=== PATIENT | female | born 1985 | race African-American/Black ===

== ENCOUNTER 2021-07-11 08:27 | Emergency (ER) | payer SELFPAY ==
[~2021-07-11] VITALS: Ht 165 cm; Wt 119.2 kg
[~2021-07-11 08:27] MED LIST: SULF1TAB35 PO; TRM50T PO
[2021-07-11] MEDS ORDERED: TRIM/SULFAMETH 160/800 (SEPTRA DS) TAB PO ONE (09:45)
[2021-07-11] MEDS ORDERED: HYDROcodone/APAP 5 MG/325 MG (LORTAB) TAB PO ONE (09:45)
--- NOTE | 2021-07-11 09:53 | ED Integumentary General ---
General Chief Complaint: Female Reproductive Stated Complaint: VAGINAL ABCESS Nursing Triage Note: PT PRESENTS TO ED VIA POV FROM HOME AND AMBULATES TO ROOM 8 ACCOMPANIED BY SPOUSE. PT REPORTS NOTICING A PAINFUL BUMP NEAR HER GENITAL AREA YESTERDAY. Source: patient, other Exam Limitations: no limitations History of Present Illness Date Seen by Provider: Jul 11, 2021 Time Seen by Provider: 09:27 Initial Comments Patient to the ER by private conveyance from home with chief complaint of 1 day progressively worsening pain in her left lower labia related to what she thinks is a boil. She has been using hot showers and Prid. She has not had any drainage. She has had this once before when she was that was drained here in the ER. She is not having any dysuria diarrhea or discharge. The patient denies a history of genital herpes. Pain is 20 out of 10 Allergies and Home Medications Allergies Coded Allergies: No Known Allergies (Verified Allergy, Unknown, 04/27/06) Home Medications Sulfamethoxazole/Trimethoprim 1 Each Tablet, 1 EACH PO BID Prescribed by: PANFILO DAWSON on 12/08/091834 Tramadol Hcl 50 Mg Tablet, 1 TAB PO QID PRN PAIN Prescribed by: PANFILO DAWSON on 12/08/091834 Patient Home Medication List Home Medication List Reviewed: Yes Review of Systems Review of Systems Constitutional: No chills, No diaphoresis EENTM: No ear discharge, No ear pain Respiratory: No cough, No short of breath Cardiovascular: No chest pain, No edema Gastrointestinal: No abdominal pain, No nausea Genitourinary: see HPI; No discharge, No dysuria Musculoskeletal: No back pain, No joint pain All Other Systems Reviewed Negative Unless Noted: Yes Past Nqjpgzl-Docdoa-Drlpye Hx Patient Social History Tobacco Use?: No Substance use?: Yes Substance type: Marijuana Alcohol Use?: No Pt feels they are or have been: No Past Medical History Last Menstrual Period: Jul 10, 2021 Physical Exam Vital Signs Vital Signs - First Documented 07/11/21 08:38 Temp 35.6 Pulse 104 Resp 16 B/P (MAP) 144/87 (106) Pulse Ox 98 Capillary Refill : Less Than 3 Seconds General Appearance: WD/WN, mild distress HEENT: PERRL/EOMI, pharynx normal Cardiovascular: normal peripheral pulses, regular rate, rhythm Respiratory: no respiratory distress, no accessory muscle use Skin: normal color, warm/dry Skin Problem Location: other (Left labia majora inferior portion about 4-5 o'clock there is a 1 cm by half centimeter area of mild induration and exquisite tenderness to palpation without fluctuance, pointing or lesions on the skin.) Progress/Results/Core Measures Results/Orders My Orders Orders - GEOFFREY BERNARD Asaf Hydrocodone/Apap 5/325 Tablet (Lortab 5 (07/11/21 09:45) Sulfamethoxazole/Trimet Ds Tab (Bactrim (07/11/21 09:45) Vital Signs/I&O 07/11/21 08:38 Temp 35.6 Pulse 104 Resp 16 B/P (MAP) 144/87 (106) Pulse Ox 98 Blood Pressure Mean: 106 Progress Progress Note : Time: 09:50 Progress Note Suspect perhaps she has a early organized folliculitis or abscess. We did discuss the possibility of herpes which the patient denies she has ever had and so declined acyclovir. We will put her on Bactrim give her some pain medicine and give her follow-up in a couple days with Dr. Singleton if her symptoms progress to look more like an abscess needing drained. Alternatively we have instructed her to return to the ER. Return precautions were discussed and the patient is okay with this plan. Departure Impression Primary Impression: Acute folliculitis Disposition: 01 HOME, SELF-CARE Condition: Stable Departure-Patient Inst. Decision time for Depature: 09:52 Referrals: FAVIAN SINGLETON DO NO,LOCAL PHYSICIAN (PCP) Primary Care Physician Patient Instructions: Bacterial Folliculitis (DC) Add. Discharge Instructions: At this point you have an infection related with the base of the hair follicles which can develop into an abscess or boil over the next couple days. If it does then follow-up with Dr. Singleton by calling for an appointment to have this drained in the clinic. Alternatively if you cannot wait to get in with him you may return to the nearest ER for incising and draining it. There is nothing to be drained today. Bactrim 1 tablet twice a day with food starting tonight at dinnertime. Tylenol 650 mg every 8 hours as necessary for pain. Ibuprofen 800 mg every 8 hours as necessary for pain. Hydrocodone 1 tablet every 6 hours as necessary for breakthrough pain. Warm moist heat such as from a washcloth applied several times a day as necessary for pain relief. Drink plenty of fluids. Hydrocodone can cause drowsiness and constipation sedation consider having a laxative such as Dulcolax or MiraLAX on board. All discharge instructions reviewed with patient and/or family. Voiced understanding. Scripts Sulfamethoxazole/Trimethoprim (Bactrim Ds Tablet) 1 Each Tablet 1 EACH PO BID for 7 Days, #14 TAB 0 Refills Prov: GEOFFREY BERNARD 07/11/21 Hydrocodone/Acetaminophen (Hydrocodone-Acetamin 5-325 mg) 1 Each Tablet 1 TAB PO Q6H PRN for PAIN-MODERATE (5-7), #14 TAB 0 Refills Prov: GEOFFREY BERNARD 07/11/21 Work/School Note: Work Release Form Date Seen in the Emergency Department: Jul 11, 2021 Return to Work: Jul 14, 2021 Restrictions: No Restrictions Copy Copies To 1: FAVIAN SINGLETON DO GEOFFREY BERNARD Jul 11, 2021 09:53
[2021-07-11] MEDS ORDERED: SULF1TAB38 PO (09:54)
[2021-07-11] MEDS ORDERED: ACHD5005 PO (09:54)
[2021-07-11 09:59] VITALS: BP 138/75
== END 2021-07-11 09:58 | disposition home or self-care (01) ==
LOC: EDUNIT# 08:27 → ER 08:29
DX: L73.8 Other specified follicular disorders (principal)
CPT/HCPCS: 99283

== ENCOUNTER 2021-07-13 12:32 | Emergency (ER) | payer SELFPAY ==
[~2021-07-13] VITALS: Ht 165 cm; Wt 119.5 kg
[~2021-07-13 12:32] MED LIST changes: +ACHD5005 PO; +SULF1TAB38 PO
[2021-07-13] MEDS ORDERED: HYDROcodone/APAP 5 MG/325 MG (LORTAB) TAB PO ONE (13:30)
[2021-07-13] MEDS ORDERED: cefTRIAXone 1,000 MG VIAL IM ONE (13:30)
[2021-07-13] MEDS ORDERED: LIDOCAINE 1% INJ 20 ML 20 ML VIAL INJ ONE ×2 (13:30)
--- NOTE | 2021-07-13 13:35 | ED GU-Female ---
General Chief Complaint: General Problems/Pain Stated Complaint: VAGINAL ABCESS Nursing Triage Note: AMB TO ED WITH MALE PATIENT REPORTS THAT HAS HAD AREA IN VAG AREA THAT IS PAINFUL. WAS SEEN 2 DAYS AGO IN ED WAS STARTED ON ANTIBIOTIC AND PAIN MEDS FEELING LIKE IT IS NOT HELPING Source: patient Exam Limitations: no limitations (COLLIN BROTHERS APRN) History of Present Illness Date Seen by Provider: Jul 13, 2021 Time Seen by Provider: 13:30 Initial Comments To ER with c/o left lower vaginal abscess x4 days. On bactrim without improvement. Timing/Duration: just prior to arrival Severity/Quality: moderate Location: vaginal Radiation: none Activities at Onset: none Prior Genitourinary Problems: none (COLLIN BROTHERS APRN) Allergies and Home Medications Allergies Coded Allergies: No Known Allergies (Verified Allergy, Unknown, 04/27/06) Home Medications Amoxicillin/Potassium Clav 1 Each Tablet, 1 EACH PO BID Prescribed by: COLLIN BROTHERS on 07/13/21 1344 Hydrocodone/Acetaminophen 1 Each Tablet, 1 TAB PO Q6H PRN for PAIN-MODERATE (5- 7) Prescribed by: GEOFFREY BERNARD on 07/11/21 0955 Hydrocodone/Acetaminophen 1 Each Tablet, 1 TAB PO Q4H PRN for PAIN-MODERATE (5- 7) Prescribed by: COLLIN BROTHERS on 07/13/21 1344 Sulfamethoxazole/Trimethoprim 1 Each Tablet, 1 EACH PO BID Prescribed by: PANFILO DAWSON on 12/08/09 1835 Sulfamethoxazole/Trimethoprim 1 Each Tablet, 1 EACH PO BID Prescribed by: GEOFFREY BERNARD on 07/11/21 0954 Tramadol Hcl 50 Mg Tablet, 1 TAB PO QID PRN PAIN Prescribed by: PANFILO DAWSON on 12/08/09 1835 Patient Home Medication List Home Medication List Reviewed: Yes (COLLIN BROTHERS APRN) Review of Systems Review of Systems Constitutional: see HPI; No chills, No fever EENTM: see HPI Respiratory: no symptoms reported Cardiovascular: no symptoms reported Genitourinary: no symptoms reported Musculoskeletal: no symptoms reported Skin: see HPI Psychiatric/Neurological: No Symptoms Reported (COLLIN BROTHERS APRN) Past Xboincp-Qqovxl-Dourfb Hx Patient Social History Tobacco Use?: No Substance use?: No Alcohol Use?: No Pt feels they are or have been: No (COLLIN BROTHERS APRN) Physical Exam Vital Signs Vital Signs - First Documented 07/13/21 12:46 Temp 35.8 Pulse 100 Resp 18 B/P (MAP) 154/93 (113) Pulse Ox 96 O2 Delivery Room Air (FARHEEN JOHN MD) Vital Signs Capillary Refill : Less Than 3 Seconds (COLLIN BROTHERS APRN) Height, Weight, BMI Height: '" Weight: lbs. oz. kg; 43.00 BMI Method: General Appearance: WD/WN, no apparent distress HEENT: PERRL/EOMI, normal ENT inspection Neck: non-tender, full range of motion Respiratory: no respiratory distress, no accessory muscle use Gastrointestinal: normal bowel sounds, non tender, soft Pelvic: other (There is a large left Bartholin abscess with [facility]a PCT at bedside. ) Extremities: normal range of motion, non-tender Neurologic/Psychiatric: alert, normal mood/affect, oriented x 3 Skin: normal color, warm/dry (COLLIN BROTHERS APRN) Procedures/Interventions I&D : Blade Size: 11 Progress anesthetized the overlying skin with 0.5ml lidocaine and then made an incision over area of most fluctuance with 11 blade scalpel. Large amount of greyish purulent foul smelling discharge expressed. Culture collected and sent to lab. (COLLIN BROTHERS APRN) Progress/Results/Core Measures Suspected Sepsis SIRS Temperature: Pulse: 100 Respiratory Rate: 18 Blood Pressure 154 /93 Mean: 113 (COLLIN BROTHERS APRN) Results/Orders Medications Given in ED Current Medications Medications Dose Ordered Sig/Murray Route Start Time Stop Time Status Last Admin Dose Admin Acetaminophen/ Hydrocodone Bitart 1 ea ONCE ONCE PO 07/13/21 13:30 07/13/21 13:31 DC 07/13/21 13:52 1 EA Ceftriaxone Sodium 1,000 mg ONCE ONCE IM 07/13/21 13:30 07/13/21 13:31 DC 07/13/21 13:53 1,000 MG Lidocaine HCl 2 ml ONCE ONCE INJ 07/13/21 13:30 07/13/21 13:31 DC 07/13/21 14:08 2 ML Lidocaine HCl 2.1 ml ONCE ONCE INJ 07/13/21 13:30 07/13/21 13:31 DC 07/13/21 14:07 2.1 ML (FARHEEN JOHN MD) Vital Signs/I&O 07/13/21 07/13/21 12:46 14:12 Temp 35.8 35.8 Pulse 100 100 Resp 18 18 B/P (MAP) 154/93 (113) 154/93 (113) Pulse Ox 96 96 O2 Delivery Room Air (FARHEEN JOHN MD) Vital Signs/I&O Capillary Refill : Less Than 3 Seconds (COLLIN BROTHERS APRN) Blood Pressure Mean: 113 Departure Impression Primary Impression: Bartholin's gland abscess Disposition: HOME, SELF-CARE Condition: Stable Departure-Patient Inst. Decision time for Depature: 13:43 (COLLIN BROTHERS APRN) Referrals: NO,LOCAL PHYSICIAN (PCP/Family) Primary Care Physician Patient Instructions: Bartholin Gland Cyst, Abscess Incision and Drainage ED Add. Discharge Instructions: 1. Warm compresses to the area, warm soaks in the bathtub. Antibiotics as directed. Return to ER for any concerns. All discharge instructions reviewed with patient and/or family. Voiced understanding. Scripts Hydrocodone/Acetaminophen (Hydrocodone-Acetamin 5-325 mg) 1 Each Tablet 1 TAB PO Q4H PRN for PAIN-MODERATE (5-7), #10 TAB Prov: COLLIN BROTHERS APRN 07/13/21 Amoxicillin/Potassium Clav (Augmentin 875-125 Tablet) 1 Each Tablet 1 EACH PO BID, #14 TAB 0 Refills Prov: COLLIN BROTHERS APRN 07/13/21 ATTENDING PHYSICIAN NOTE: I was physically present as attending physician in the emergency department during the care of this patient, but I was not directly involved in the decision making or delivery of care for this patient. (FARHEEN JOHN MD) COLLIN BROTHERS APRN Jul 13, 2021 13:35 FARHEEN JOHN MD Jul 13, 2021 22:03
[2021-07-13] MEDS ORDERED: AMOX-358 PO (13:44)
[2021-07-13] MEDS ORDERED: ACHD5005 PO (13:44)
[2021-07-13 14:12] VITALS: BP 154/93
== END 2021-07-13 14:12 | disposition home or self-care (01) ==
LOC: EDUNIT# 12:32 → ER 12:35
DX: N75.1 Abscess of Bartholin's gland (principal)
CPT/HCPCS: 10060; 87070; 87205

== ENCOUNTER 2022-11-16 00:49 | Emergency (ER) | payer SELFPAY ==
[~2022-11-16 00:49] MED LIST changes: +AMOX-358 PO
[2022-11-16] MEDS ORDERED: PROMETHAZINE INJ 25 MG/ML (PHENERGAN) AMP IM ONE (01:45)
[2022-11-16] MEDS ORDERED: diphenhydrAMINE 50 MG/ML INJ (BENADRYL) IM ONE (01:45)
[2022-11-16] MEDS ORDERED: KETOROLAC 60 MG/2 ML VIAL IM ONE (01:45)
--- NOTE | 2022-11-16 01:45 | ED Headache ---
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 STATES SHE TOOK TYLENOL, BUT VOMITED AFTERWARDS. HX OF HEADACHES/MIGRAINES IN THE PAST. Source: patient History of Present Illness Date Seen by Provider: Nov 16, 2022 Time Seen by Provider: 01:30 Initial Comments PT ARRIVES VIA POV FROM HOME C/O MIGRAINE THAT BEGAN APPROXIMATELY 1 HOUR PRIOR TO ARRIVAL, WHILE AT THE MOVIE THEATER WATCHING A 3-D MOVIE C/O NAUSEA AND VOMITING X 4 HEADACHE IS BEHIND EYES AND IN BACK OF HEAD PAIN IS WORSE WITH LIGHTS, AND PUTTING HEAT ON HER HEAD PUTTING COOL RAG ON HER HEAD HELPS SHE HAS NOT TAKEN ANYTHING FOR PAIN AT ANY TIME SHE FELT FINE BEFORE SHE WENT TO THE MOVIE NO FEVER OR RECENT ILLNESS NO URI SYMPTOMS NO VISION CHANGES NO PARESTHESIAS OR MOTOR DEFICITS PT HAS HISTORY OF MIGRAINES, AND THIS IS EXACTLY THE SAME HER PREVIOUS HEADACHES STATES SHE DOES NOT GET THEM VERY OFTEN--EVERY COUPLE OF MONTHS SHE DOES NOT TAKE DAILY MEDICATIONS PCP: [facility] Allergies and Home Medications Allergies Coded Allergies: Duran Known Allergies (Verified Allergy, Unknown, 04/27/06) Patient Home Medication List Amoxicillin/Potassium Clav (Augmentin 875-125 Tablet) 1 Each Tablet, 1 EACH PO BID Prescribed by: COLLIN BROTHERS on 07/13/21 1344 Hydrocodone/Acetaminophen (Hydrocodone-Acetamin 5-325 mg) 1 Each Tablet, 1 TAB PO Q6H PRN for PAIN-MODERATE (5-7) Prescribed by: GEOFFREY BERNARD on 07/11/21 0955 Hydrocodone/Acetaminophen (Hydrocodone-Acetamin 5-325 mg) 1 Each Tablet, 1 TAB PO Q4H PRN for PAIN-MODERATE (5-7) Prescribed by: COLLIN BROTHERS on 07/13/21 1344 Sulfamethoxazole/Trimethoprim (Bactrim DS) 1 Each Tablet, 1 EACH PO BID Prescribed by: PANFILO DAWSON on 12/08/09 183 Sulfamethoxazole/Trimethoprim (Bactrim Ds Tablet) 1 Each Tablet, 1 EACH PO BID Prescribed by: GEOFFREY BERNARD on 07/11/21 0954 Tramadol Hcl (Ultram) 50 Mg Tablet, 1 TAB PO QID Prescribed by: PANFILO DAWSON on 12/08/09 183 Review of Systems Review of Systems Constitutional: no symptoms reported Eyes: See HPI Ears, Nose, Mouth, Throat: no symptoms reported Respiratory: no symptoms reported Cardiovascular: no symptoms reported Gastrointestinal: see HPI Genitourinary: no symptoms reported Musculoskeletal: no symptoms reported Skin: no symptoms reported Psychiatric/Neurological: See HPI, Headache; Denies Numbness, Denies Paresthesia, Denies Seizure, Denies Tingling, Denies Weakness Past Ferjybm-Rgytgm-Hgykuv Hx Patient Social History Tobacco Use?: No Substance use?: Yes Substance type: Marijuana Alcohol Use?: No Immunizations Up To Date Influenza Vaccine Up-to-Date: No; Not Current Past Medical History Surgeries: No Respiratory: No Cardiac: No Neurological: Yes Headaches /Migraines : No Last Menstrual Period: Nov 11, 2022 Genitourinary: No Gastrointestinal: No Musculoskeletal: No Endocrine: No HEENT: No Cancer: No Psychosocial: Yes Anxiety Integumentary: No Blood Disorders: No Physical Exam Vital Signs Vital Signs - First Documented 11/16/22 01:07 Temp 36.0 Pulse 86 Resp 16 B/P (MAP) 139/108 (118) Pulse Ox 98 O2 Delivery Room Air Capillary Refill : Less Than 3 Seconds Height, Weight, BMI Height: '" Weight: lbs. oz. kg; 43.00 BMI Method: General Appearance: WD/WN, no apparent distress HEENT: PERRL/EOMI, normal ENT inspection, TMs normal, pharynx normal; No photophobia Neck: non-tender, full range of motion, supple, normal inspection Cardiovascular: regular rate, rhythm, no murmur Respiratory: normal breath sounds, no respiratory distress, no accessory muscle use Gastrointestinal: non tender Back: normal inspection Extremities: normal inspection Psychiatric: alert, oriented x 3 Crainal Nerves: normal hearing, normal speech, PERRL Coordination/Gait: normal gait Motor/Sensory: no motor deficit, no sensory deficit Skin: normal color (PT IS BLACK), warm/dry Progress/Results/Core Measures Results/Orders My Orders Orders - PANFILO DAWSON DO Ketorolac Injection (Toradol Injection) (11/16/22 01:45) Promethazine Injection (Phenergan Injec (11/16/22 01:45) Diphenhydramine Injection (Benadryl Inje (11/16/22 01:45) Medications Given in ED Current Medications Medications Dose Ordered Sig/Murray Route Start Time Stop Time Status Last Admin Dose Admin Diphenhydramine HCl 50 mg ONCE ONCE IM 11/16/22 01:45 11/16/22 01:46 DC 11/16/22 02:06 50 MG Ketorolac Tromethamine 60 mg ONCE ONCE IM 11/16/22 01:45 11/16/22 01:46 DC 11/16/22 02:05 60 MG Promethazine HCl 25 mg ONCE ONCE IM 11/16/22 01:45 11/16/22 01:46 DC 11/16/22 02:07 25 MG Vital Signs/I&O 11/16/22 01:07 Temp 36.0 Pulse 86 Resp 16 B/P (MAP) 139/108 (118) Pulse Ox 98 O2 Delivery Room Air Blood Pressure Mean: 118 Progress Progress Note : Progress Note GIVEN TORADOL, PHENERGAN AND BENADRYL HEADACHE BEGINNING TO EASE AND NAUSEA IS GONE AT TIME OF DISMISSAL Departure Impression Primary Impression: Headache Disposition: 01 HOME, SELF-CARE Condition: Stable Departure-Patient Inst. Referrals: [facility] Patient Instructions: Headache, Adult (DC) Add. Discharge Instructions: HOME, REST LOTS OF CLEAR LIQUIDS TYLENOL 1 GRAM + MOTRIN 800 MG EVERY 6 HOURS NEEDED FOR PAIN FOLLOW UP WITH YOUR DR IN 1-2 DAYS IF NO BETTER, RETURN TO ER IF WORSE All discharge instructions reviewed with patient and/or family. Voiced understanding. PANFILO DAWSON DO Nov 16, 2022 01:45
[2022-11-16 02:34] VITALS: BP 135/82
== END 2022-11-16 02:34 | disposition home or self-care (01) ==
LOC: EDUNIT# 00:49 → ER 00:50
DX: R51.9 Headache, unspecified (principal); Z28.310 Unvaccinated for COVID-19
CPT/HCPCS: 99284